=== PATIENT | female | born 1945 | race Caucasian/White ===

== ENCOUNTER 2018-11-15 09:56 | Inpatient (IN) | payer MEDICARE, OTHER ==
[~2018-11-15] VITALS: Ht 157.5 cm; Wt 57.0 kg
[~2018-11-15 09:56] MED LIST: ASPI-496 PO; EZET10TA18 PO; IRBE150T25 PO; MULT-658 PO; SIMV40TA3 PO
--- NOTE | 2018-11-15 12:34 | NUR ---
LAB ERROR IN REPORTING D-DIMER RESULT ON WRONG PT.
--- NOTE | 2018-11-15 13:38 | NUR ---
CALLED HOUSEKEEPING, HOSPITAL BED REQUESTED TO BE BROUGHT TO ED FOR PT COMFORT.
[2018-11-15 13:47] LABS: MEAN CORPUSCULAR HEMOGLOBIN 30.7 pg (27.0-34.8); MEAN CORPUSCULAR HGB CONC 32.9 g/dL (32.4-35.8); MEAN CORPUSCULAR VOLUME 93.2 fL (80-100); RED CELL DISTRIBUTION WIDTH 12.9 % (9.6-15.2)
[2018-11-15 13:48] LABS: BASOPHILS % (AUTO) 1 % (0-1); EOSINOPHILS % (AUTO) 3 % (1-7); LYMPHOCYTES # (AUTO) 1.14 x10^3/uL (1-3.4); LYMPHOCYTES % (AUTO) 23 % (22-44); MEAN PLATELET VOLUME 8.5 fL (7.4-10.4); MONOCYTES # (AUTO) 0.52 x10^3/uL (0.2-0.8); MONOCYTES % (AUTO) 10 % (2-9); NEUTROPHILS # (AUTO) 3.17 x10^3/uL (1.8-6.8); NEUTROPHILS % (AUTO) 63 % (42-75); PLATELET COUNT 202 x10^3/uL (130-400)
[2018-11-15 13:49] LABS: BASOPHILS # (AUTO) 0.03 x10^3/uL (0-0.1); EOSINOPHILS # (AUTO) 0.16 x10^3/uL (0-0.4); MD NO
[2018-11-15 13:57] LABS: ANION GAP 7 mmol/L (5-15); CALCIUM 8.7 mg/dL (8.5-10.1); CHLORIDE 109 mmol/L (98-107); CREATININE 0.93 mg/dL (0.55-1.02); TROPONIN I < 0.015 ng/mL (0.000-0.045)
[2018-11-15 13:59] LABS: INTERNATIONAL NORMALIZED RATIO 0.96 (0.93-1.1); PROTHROMBIN TIME 10.1 Seconds (9.6-11.5)
[2018-11-15] MEDS ORDERED: NITROGLYCERIN 0.4 MG/SPRAY SL PRN (14:00)
[2018-11-15] MEDS ORDERED: KETOROLAC 30 MG/1 ML IV PRN (14:00)
[2018-11-15] MEDS ORDERED: IBUPROFEN 600 MG TABLET PO PRN (14:00)
[2018-11-15] MEDS ORDERED: morphine SULFATE 10 MG/ML, 1ML IVPush PRN (14:00)
[2018-11-15] MEDS ORDERED: ACETAMINOPHEN 325 MG TABLET PO PRN (14:00)
[2018-11-15] MEDS ORDERED: NITROGLYCERIN 0.4 MG BOTTLE (25 TABS) SL PRN (14:00)
[2018-11-15] MEDS ORDERED: ONDANSETRON 2MG/ML, 2ML IVPush PRN (14:00)
[2018-11-15] MEDS ORDERED: ONDANSETRON ODT 4 MG PO PRN (14:00)
--- NOTE | 2018-11-15 14:32 | NUR ---
PT TRANSFERED ONTO HOSPITAL BED FOR COMFORT. CARDIAC MEAL TRAY PROVIDED.
[2018-11-15] MEDS ORDERED: ENOXAPARIN 40 MG/0.4 ML ONE (14:34)
[2018-11-15] MEDS: ENOXAPARIN 40 MG/0.4 ML SQ SCH (14:36)
--- NOTE | 2018-11-15 15:19 | NUR ---
TASK RN: PT SITTING UP IN HOSPITAL BED READING BOOK, NAD NOTED. PWD; RESPIRATIONS EVEN/UNLABORED. PT RESPORTS 3/10 PAIN AND DENIES NEED FOR FURTHER PAIN MEDICATIONS. BP/SPO2/ECG MONITORING IN PLACE. NSR ON MONITOR.
[2018-11-15 16:11] LABS: TROPONIN I < 0.015 ng/mL (0.000-0.045)
--- NOTE | 2018-11-15 17:57 | NUR ---
DIET TRAY ORDERED AND DIET OFFICE NOTIFIED
--- NOTE | 2018-11-15 17:59 | NUR ---
HOUSEKEEP[facility] NOTIFIED OF NEED FOR HOSPITAL BED
[2018-11-15] MEDS ORDERED: SIMVASTATIN 40 MG TABLET PO SCH (21:00)
[2018-11-15 21:21] VITALS: BP 143/70
[2018-11-15] MEDS ORDERED: ATOR40TA78 PO (21:53)
[2018-11-15] MEDS ORDERED: INUL1TAB4 PO (21:53)
[2018-11-15] MEDS ORDERED: ATORVASTATIN 40 MG TABLET PO SCH (22:30)
[2018-11-15 22:58] LABS: TROPONIN I < 0.015 ng/mL (0.000-0.045)
[2018-11-16 01:28] VITALS: BP 153/76
[2018-11-16] MEDS ORDERED: ASPIRIN 81 MG TABLET EC PO SCH (06:00)
[2018-11-16 06:02] LABS: BASOPHILS # (AUTO) 0.01 x10^3/uL (0-0.1); BASOPHILS % (AUTO) 0 % (0-1); EOSINOPHILS % (AUTO) 5 % (1-7); LYMPHOCYTES # (AUTO) 1.25 x10^3/uL (1-3.4); LYMPHOCYTES % (AUTO) 31 % (22-44); MD NO; MEAN CORPUSCULAR HEMOGLOBIN 31.3 pg (27.0-34.8); MEAN CORPUSCULAR HGB CONC 34.2 g/dL (32.4-35.8); MEAN CORPUSCULAR VOLUME 91.3 fL (80-100); MONOCYTES # (AUTO) 0.42 x10^3/uL (0.2-0.8); MONOCYTES % (AUTO) 11 % (2-9); NEUTROPHILS # (AUTO) 2.13 x10^3/uL (1.8-6.8); NEUTROPHILS % (AUTO) 53 % (42-75); PLATELET COUNT 174 x10^3/uL (130-400); RED BLOOD COUNT 4.48 x10^6/uL (3.82-5.3); RED CELL DISTRIBUTION WIDTH 12.5 % (9.6-15.2)
[2018-11-16 06:12] LABS: ALBUMIN 3.7 g/dL (3.4-5.0); ANION GAP 6 mmol/L (5-15); CALCIUM 8.1 mg/dL (8.5-10.1); CHLORIDE 109 mmol/L (98-107)
[2018-11-16 06:23] LABS: ALANINE AMINOTRANSFERASE 27 U/L (12-78); ALKALINE PHOSPHATASE 93 U/L (45-117); BILIRUBIN,TOTAL 0.7 mg/dL (0.2-1.0); CHOL/HDL RATIO 2.8; CHOLESTEROL, TOTAL 163 mg/dL (140-239); CREATININE 0.88 mg/dL (0.55-1.02); HDL CHOL % 36 % (28-40); HDL CHOLESTEROL (DIRECT) 58 mg/dL (40-60); LDL CHOLESTEROL,CALCULATED 60 mg/dL (54-169); TOTAL PROTEIN 6.1 g/dL (6.4-8.2); TRIGLYCERIDES 224 mg/dL (50-200); VLDL CHOLESTEROL 45 mg/dL (0-25)
[2018-11-16] MEDS ORDERED: PANTOPRAZOLE 40 MG IV IVPush SCH (07:30)
[2018-11-16 07:35] VITALS: BP 123/69
[2018-11-16] MEDS: EZETIMIBE 10 MG TABLET PO SCH ×2 (08:21→08:24)
[2018-11-16] MEDS ORDERED: IRBESARTAN 150 MG TABLET PO SCH (09:00)
[2018-11-16] MEDS ORDERED: MULTIVITAMIN 1 TABLET PO SCH (09:00)
[2018-11-16] MEDS ORDERED: REGADENOSON 0.4 MG/5 ML SYRINGE ONE (09:05)
[2018-11-16 12:50] VITALS: BP 143/77
[2018-11-16] MEDS: ENOXAPARIN 40 MG/0.4 ML SQ SCH (14:00)
[2018-11-16] MEDS ORDERED: ACET325T14 PO (16:59)
== END 2018-11-16 18:16 | disposition home or self-care (01) | DRG 303 ==
LOC: ED 11:35 → EDIP 13:47 → 5SO 21:19
PROVIDERS: ADMIT Hospitalist; ATTEND Hospitalist
DX: I25.118 Atherosclerotic heart disease of native coronary artery with other forms of angina pectoris (principal); R07.9 Chest pain, unspecified; E78.5 Hyperlipidemia, unspecified; I10 Essential (primary) hypertension; I65.29 Occlusion and stenosis of unspecified carotid artery; J45.909 Unspecified asthma, uncomplicated; K58.9 Irritable bowel syndrome, unspecified; Z82.49 Family history of ischemic heart disease and other diseases of the circulatory system; Z87.891 Personal history of nicotine dependence; Z90.710 Acquired absence of both cervix and uterus; Z90.49 Acquired absence of other specified parts of digestive tract
CPT/HCPCS: 0399T; 36415; 71045; 78452; 80048; 80053; 80061; 83735; 84100; 84443; 84484; 85025; 85610; 85730; 93005; 93017; 93306; 96374; 99285; G0378; J1650; J2785; A9502; C9113; C9898

== ENCOUNTER → 2018-12-11 | Outpatient (CLI) | payer MEDICARE, OTHER ==
[~2018-12-11] MED LIST changes: +ACET325T14 PO; +ATOR40TA78 PO; +INUL1TAB4 PO
== END | disposition home or self-care (01) ==
LOC: CVU 10:37
PROVIDERS: ATTEND Internal Medicine Cardiovascular Disease
DX: I65.23 Occlusion and stenosis of bilateral carotid arteries (principal); I10 Essential (primary) hypertension; E78.5 Hyperlipidemia, unspecified; Z98.890 Other specified postprocedural states
CPT/HCPCS: 93880

== ENCOUNTER → 2020-01-31 | Outpatient (CLI) | payer MEDICARE, OTHER ==
[~2020-01-31] MED LIST changes: -EZET10TA18 PO; +EZET10TA70 PO; -IRBE150T25 PO; +IRBE150T9 PO; +SIMV40TA20 PO; -SIMV40TA3 PO
== END | disposition home or self-care (01) ==
LOC: CVU 14:29
PROVIDERS: ATTEND Internal Medicine Cardiovascular Disease
DX: I65.23 Occlusion and stenosis of bilateral carotid arteries (principal)
CPT/HCPCS: 93880

== ENCOUNTER → 2021-02-18 | Outpatient (CLI) | payer MEDICARE, OTHER | END | disposition home or self-care (01) | LOC: CVU 15:29 | PROVIDERS: ATTEND Internal Medicine Cardiovascular Disease | DX: I65.23 Occlusion and stenosis of bilateral carotid arteries (principal); I10 Essential (primary) hypertension; E78.5 Hyperlipidemia, unspecified | CPT/HCPCS: 93880 ==

== ENCOUNTER 2021-05-13 10:50 | Day surgery (SDC) | payer MEDICARE, OTHER ==
[~2021-05-13] VITALS: Ht 157.5 cm; Wt 56.8 kg
[2021-05-13 11:17] VITALS: BP 148/68
[2021-05-13] MEDS ORDERED: ALBU18HF IH (11:21)
[2021-05-13] MEDS ORDERED: Magnesium PO (11:22)
[2021-05-13] MEDS ORDERED: ACET325T14 PO (11:24)
[2021-05-13] MEDS ORDERED: SODIUM CHLORIDE 0.9% 1,000 ML IV SCH ×2 (11:30→14:30)
[2021-05-13 12:05] LABS: BASOPHILS % (AUTO) 1 % (0-1); EOSINOPHILS % (AUTO) 4 % (1-7); LYMPHOCYTES % (AUTO) 25 % (22-44); MEAN CORPUSCULAR HEMOGLOBIN 31.8 pg (27.0-34.8); MEAN PLATELET VOLUME 7.9 fL (7.4-10.4); MONOCYTES % (AUTO) 11 % (2-9); NEUTROPHILS % (AUTO) 60 % (42-75); PLATELET COUNT 193 x10^3/uL (130-400); RED BLOOD COUNT 4.71 x10^6/uL (3.82-5.3)
[2021-05-13 12:19] LABS: ANION GAP 8 mmol/L (5-15); CALCIUM 9.8 mg/dL (8.5-10.1); CHLORIDE 106 mmol/L (98-107); CREATININE 1.02 mg/dL (0.55-1.02)
[2021-05-13] MEDS ORDERED: MIDAZOLAM 1 MG/ML, 5ML ONE (13:33)
[2021-05-13] MEDS ORDERED: VERAPAMIL 2.5 MG/ML, 2ML ONE (13:33)
[2021-05-13] MEDS ORDERED: FENTANYL PF 100 MCG/2ML ONE (13:33)
[2021-05-13] MEDS ORDERED: HEPARIN 1,000 UNITS/ML, 10ML ONE (13:33)
[2021-05-13] MEDS ORDERED: LIDOCAINE-MPF 1%, 5ML ONE (13:33)
== END 2021-05-13 16:07 | disposition home or self-care (01) ==
LOC: CACL 10:50
PROVIDERS: ATTEND Internal Medicine Cardiovascular Disease
DX: R00.2 Palpitations (principal); R94.39 Abnormal result of other cardiovascular function study; I25.10 Atherosclerotic heart disease of native coronary artery without angina pectoris; I10 Essential (primary) hypertension; E78.5 Hyperlipidemia, unspecified; Z98.890 Other specified postprocedural states; Z79.899 Other long term (current) drug therapy; Z79.82 Long term (current) use of aspirin; Z79.4 Long term (current) use of insulin; Z87.891 Personal history of nicotine dependence; Z72.89 Other problems related to lifestyle
CPT/HCPCS: 36415; 80048; 85025; 93458; 99156; C1769; C1894; J1644; J2250; J3010; Q9967